=== PATIENT | female | born 2000 | race Caucasian/White ===

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

== ENCOUNTER 2021-03-03 08:02 | Emergency (ER) | payer OTHER ==
[~2021-03-03 08:02] MED LIST changes: +ACETAMINOPHEN500 M1 PO; +ATARAX25 MG PO; +COLACE100 MG PO; +MOTRIN600 MG PO; +NORCO 5-325 TA1 EACH PO; +OXY-IR 5MG5 MG PO; +VRAYLAR1.5 MG PO
[2021-03-03 09:01] LABS: BASOPHIL 0.4 % (0-2); EOSINOPHIL 0.8 % (0-5); HCT 40.2 % (37.0-47.0); HGB 12.5 g/dl (12.5-16.0); LYMPHOCYTE 33.5 % (15-48); MCH 26.4 pg (25.0-31.0); MCHC 31.1 g/dL (32.0-36.0); MONOCYTE 7.9 % (0-12); MPV 9.5 fL (6.0-9.5); NEUTROPHIL 57.1 % (41-80); NRBC 0; PLT 288 K/uL (150-400); RBC 4.73 M/uL (4.20-5.40); RDW 13.2 % (11.5-14.0); WBC 9.8 K/uL (4.0-10.5)
[2021-03-03 09:02] LABS: BILIRUBIN NEGATIVE (NEGATIVE); BLOOD 2+ Ery/uL (NEGATIVE); CLARITY CLEAR (CLEAR); COLOR YELLOW (YELLOW); GLUCOSE (U) NORMAL (NORMAL); LEUKOCYTES 1+ Leu/uL (NEGATIVE); NITRITE NEGATIVE (NEGATIVE); PROTEIN NEGATIVE (NEGATIVE); UROBILINOGEN 0.2 mg/dL (0.2-1.0)
[2021-03-03 09:06] LABS: AMPHETAMINES NEGATIVE (NEGATIVE); BARBITURATES NEGATIVE (NEGATIVE); ECSTASY (MDMA) NEGATIVE (NEGATIVE); MARIJUANA (THC) NEGATIVE (NEGATIVE); METHADONE NEGATIVE (NEGATIVE); OPIATES NEGATIVE (NEGATIVE); OXYCODONE NEGATIVE (NEGATIVE)
[2021-03-03 09:10] LABS: BACTERIA TRACE; URINARY RBC RARE
[2021-03-03 09:14] LABS: ALBUMIN 3.4 g/dL (3.4-5.0); BILIRUBIN - TOTAL 0.3 mg/dL (0.2-1.0); BUN/CREAT RATIO (CALC) 10.8 RATIO; CREATININE 1.02 mg/dL (0.51-0.95); GLOBULIN (CALCULATION) 3.6 g/dL; POTASSIUM 4.2 mmol/L (3.5-5.1)
[2021-03-03] MEDS ORDERED: NAPROXEN500 MG PO (09:49)
== END 2021-03-03 10:04 | disposition home or self-care (01) ==
LOC: FER 08:02
PROVIDERS: Emergency Medicine
DX: N94.6 Dysmenorrhea, unspecified (principal); F41.1 Generalized anxiety disorder; F17.290 Nicotine dependence, other tobacco product, uncomplicated
CPT/HCPCS: 36415; 80053; 80305; 81001; 84443; 85025; 99284

== ENCOUNTER 2021-04-15 09:11 | Emergency (ER) | payer OTHER ==
[~2021-04-15 09:11] MED LIST changes: +NAPROXEN500 MG PO
[2021-04-15 10:06] LABS: BASOPHIL 0.4 % (0-2); EOSINOPHIL 0.6 % (0-5); HCT 37.1 % (37.0-47.0); HGB 11.8 g/dl (12.5-16.0); LYMPHOCYTE 24.6 % (15-48); MCH 27.3 pg (25.0-31.0); MCHC 31.8 g/dL (32.0-36.0); MCV 85.7 fL (78.0-100.0); MONOCYTE 8.3 % (0-12); MPV 9.5 fL (6.0-9.5); NEUTROPHIL 65.9 % (41-80); NRBC 0; PLT 245 K/uL (150-400); RBC 4.33 M/uL (4.20-5.40); RDW 12.9 % (11.5-14.0); WBC 9.5 K/uL (4.0-10.5)
[2021-04-15 10:08] LABS: BILIRUBIN NEGATIVE (NEGATIVE); BLOOD NEGATIVE Ery/uL (NEGATIVE); CLARITY CLEAR (CLEAR); COLOR YELLOW (YELLOW); GLUCOSE (U) NORMAL (NORMAL); LEUKOCYTES NEGATIVE Leu/uL (NEGATIVE); NITRITE NEGATIVE (NEGATIVE); PROTEIN NEGATIVE (NEGATIVE); UROBILINOGEN 0.2 mg/dL (0.2-1.0)
== END 2021-04-15 10:45 | disposition home or self-care (01) ==
LOC: FER 09:11
PROVIDERS: Emergency Medicine
DX: N83.201 Unspecified ovarian cyst, right side (principal); F25.9 Schizoaffective disorder, unspecified; Z90.49 Acquired absence of other specified parts of digestive tract; Z79.899 Other long term (current) drug therapy
CPT/HCPCS: 36415; 81003; 85025; 99284